=== PATIENT | female | born 2000 | race African-American/Black ===

== ENCOUNTER 2019-01-25 13:30 | Emergency (ER) | payer SELFPAY ==
[2019-01-25 13:36] VITALS: BP 136/96; PULSE 90; RESP 24; TEMP 36.4; O2SAT 100
--- NOTE | 2019-01-25 14:06 | DI.RAD.S_ITS ---
PROCEDURE: XR CHEST 1V INDICATIONS: chest pain and nausea TECHNIQUE: One view of the chest was acquired. COMPARISON: None. FINDINGS: Surgical changes and devices: None. Lungs and pleura: Lungs are clear. No pleural effusions or pneumothorax. Mediastinum: Mediastinal contours appear normal. Heart size is normal. Bones and chest wall: No suspicious bony lesions. Benign-appearing tubular region of increased density within the soft tissues of the left forearm adjacent to the humerus which could represent dystrophic calcification, heterotopic os patient, or reactive granulomatous formation in the setting of current or prior implanted device. IMPRESSION: No acute cardiopulmonary abnormality. Dictated by: Wily Jo M.D. on 01/25/2019 at 13:25 Approved by: Wily Jo M.D. on 01/25/2019 at 13:28
[2019-01-25 14:25] VITALS: BP 115/72; PULSE 71; RESP 13; O2SAT 100
[2019-01-25 14:43] LABS: Add Manual Diff / Slide Review NO; Basophils Absolute Auto 100 /uL (0-100); Basophils Percent Auto 0.8 % (0-2); Eosinophils Absolute Auto 0 /uL (0-450); Eosinophils Percent Auto 0.5 % (2-4); Hematocrit 38.1 % (36-46); Lymphocytes Absolute Auto 1800 /uL (1100-4500); Lymphocytes Percent Auto 23.2 % (25-40); Mean Corpuscular Hemoglobin 27.5 PG (26-34); Mean Corpuscular Volume 80.8 fL (80-100); Monocytes Absolute Auto 600 /uL (0-900); Monocytes Percent Auto 7.5 % (3-14); Neutrophils Absolute Auto 5300 /uL (1500-7000); Platelet Count 391 X10^3/uL (150-400); Red Blood Cell Count 4.71 X10^6/uL (4.0-5.2); Red Cell Distribution Width 14.5 % (11.6-14.8); White Blood Cell Count 7.8 X10^3/uL (4.5-11.0)
[2019-01-25 14:58] LABS: Alanine Aminotransferase 16 IU/L (9-52); Albumin 4.5 g/dL (3.5-5.0); Albumin Globulin Ratio 1.1 (1.0-2.8); Alkaline Phosphatase 86 U/L (38-126); Aspartate Aminotransferase 40 IU/L (14-36); BUN Creatinine Ratio 23.3 (6-22); Bilirubin Total 0.6 mg/dL (0.2-1.3); Blood Urea Nitrogen 14 mg/dL (7-17); Calcium 9.5 mg/dL (8.4-10.2); Carbon Dioxide 24 mmol/L (22-32); Chloride 104 mmol/L (98-107); Creatine Kinase 139 U/L (30-135); Estimated Glomerular Filt Rate > 60.0 mL/min (>60); Globulin 4.2 g/dL (1.7-4.1); Glucose 91 mg/dL (70-100); Lipase 92 U/L (23-300); Potassium 4.1 mmol/L (3.4-5.1); Sodium 140 mmol/L (137-145); Total Protein 8.7 g/dL (6.3-8.2)
[2019-01-25 15:04] LABS: D Dimer < 200 ng/mL (<230)
[2019-01-25] MEDS: IBUPROFEN 400 MG TABLET PO (15:08)
[2019-01-25 15:09] LABS: Troponin I < 0.012 ng/mL (0.01-0.034)
[2019-01-25 15:13] LABS: CKMB % Relative Index 0.5 % (1.5-5.0); Creatine Kinase MB 0.69 ng/mL (<2.37)
[2019-01-25 15:17] LABS: HEMOLYSIS 94 (0-50)
--- NOTE | 2019-01-25 15:31 | ED.CHESTPAIN ---
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 She denies work load is heavy or strenuous. She denies heavy lifting recently. Patient was diagnosed yesterday her symptoms probably due to anxiety attacks. Patient denies prior history of anxiety or anxiety attacks, or history of GERD. Patient reports she has mild cough and mild sore throat. Patient reports discomfort came on when she was working and got better with rest and when she returned back to work the pain recurred. Patient reports she has family history of heart attacks in her grandfather and father at later age and maternal aunt. She takes control pill and he is a nonsmoker. LMP yesterday. Related Data Previous Rx's Medication Instructions Recorded omeprazole 20 mg PO DAILY #30 cap 01/25/19 ondansetron 4 mg PO BID-TID PRN #7 tab 01/25/19 Review of Systems <Zafar PerdomoangJayeshaugustus [facility] - Last Filed: 01/26/19 00:12> Review of Systems Narrative: General: Denies fever, chills, fatigue, malaise, sweats. HEENT: Reports mild sore throat. Denies sinus pain, ear pain, difficulty swallowing, dizziness. Respiratory: Reports mild cough. Denies dyspnea, wheezing, hemoptysis, sputum. Cardiovascular: See HPI Gastrointestinal: Reports nausea. Denies vomiting, abdominal pain, diarrhea, constipation, melena. : Denies dysuria, frequency, incontinence, hematuria, urinary retention. Musculoskeletal: Denies weakness, joint pain or bony pain. Skin: Denies rash, skin lesions, or other. Neurologic: Denies weakness, headache, numbness, change in speech, confusion, seizures, incoordination. Psychiatric: No concerning psychosocial issues. 12-point review of systems is negative except for those stated above. Patient History <SKYLER Means - Last Filed: 01/26/19 00:12> Social History Smoking Status: Never smoker Social History Smoking Status: Never smoker Substance Use Type: does not use Exam <SKYLER Means - Last Filed: 01/26/19 00:12> Narrative Exam Narrative: GEN: Alert, oriented x 3, well appearing and nourished, and in no acute distress. Head: Normal cephalic, atraumatic. No scalp or temporal tenderness, palpable mass or rash. EYES: Pupils are equal, round, and reactive to light and accommodation. Extraocular muscles are intact bilaterally. There is no subconjunctival hemorrhage, exudate and sclera non-icteric. ENT: Bilateral auditory canals and tympanic membranes clear. Hearing grossly intact. Nose without bleeding, purulent discharge or deviation. Facial sinuses nontender to palpate. Mucous membrane moist, no mucosal lesion. Throat without erythema, tonsillar hypertrophy or exudate. Uvula in midline, airway patent. Neck: Trachea in midline. No JVD, non-tender without lymphadenopathy. No masses or thyroid megaly. Supple, non-tender and no meningeal signs. CARDIAC: Normal regular rate and rhythm without murmurs, gallops, or rubs. No chest wall tenderness. No peripheral edema, cyanosis or pallor. Capillary refill is less than 2 seconds. RESPIRATORY: Lungs are cleat to auscultate bilaterally. No cough, wheezes, rales, or rhonchi. No stridor, respiratory distress, increase work of breathing, or accessary muscle used. ABD: Abdomen soft, nontender and non-distended. No guarding or rebound tenderness to palpate. Bowel sounds are normal in all 4 quadrants. There is no palpable masses or organomegaly. EXT: Full painless ROM of all extremities with no loss of sensation, strength, effusion or edema. SKIN: Warm, dry, normal color for patient. No erythema, lesions or rash over visible areas. BACK: Nontender without deformity or crepitance. No flank tenderness. NEUROLOGICAL: Alert and oriented to place, time and person. Sensation and motor function intact bilaterally. No facial droops, dysphasia. PSYCHIATRIC: Good judgement and reason, without hallucinations, abnormal affect or abnormal behaviors during the examination. Initial Vital Signs Initial Vital Signs: Vital Signs Temperature 97.6 F 01/25/19 13:36 Pulse Rate 90 01/25/19 13:36 Respiratory Rate 24 01/25/19 13:36 Blood Pressure 136/96 H 01/25/19 13:36 Pulse Oximetry 100 01/25/19 13:36 <Nancy Trinidad DO - Last Filed: 01/29/19 18:19> Initial Vital Signs Initial Vital Signs: Vital Signs Temperature 97.6 F 01/25/19 13:36 Pulse Rate 90 01/25/19 13:36 Respiratory Rate 24 01/25/19 13:36 Blood Pressure 136/96 H 01/25/19 13:36 Pulse Oximetry 100 01/25/19 13:36 Scores <SKYLER Means - Last Filed: 01/26/19 00:12> GCS Lobo coma scale eye opening: Spontaneous [place] coma scale verbal response: Orientated Lobo coma scale motor response: Obey commands Lobo coma scale total score: 15 Course <SKYLER Means - Last Filed: 01/26/19 00:12> Orders Ordered: Discontinued Medications Al Hydrox/Mg Hydrox/Simethicone 20 ml/ Lidocaine HCl 15 ml 0 ml PO NOW ONE Stop: 01/25/19 15:28 Last Admin: 01/25/19 16:06 Dose: 35 ml Documented by: LUCIUS Ibuprofen (Advil) 400 mg PO NOW ONE Stop: 01/25/19 15:04 Last Admin: 01/25/19 15:08 Dose: 400 mg Documented by: YAYO Ketorolac Tromethamine (Toradol) 30 mg IV NOW ONE Stop: 01/25/19 14:06 Last Admin: 01/25/19 15:09 Dose: Not Given Documented by: YAYO Ondansetron HCl (Zofran) 4 mg IV NOW ONE Stop: 01/25/19 14:06 Last Admin: 01/25/19 15:09 Dose: Not Given Documented by: YAYO Vital Signs Vital signs: Vital Signs - 8 hr 01/25/19 16:46 Pulse Rate 68 Respiratory Rate 13 Blood Pressure 118/74 Pulse Oximetry 100 <Nancy Trinidad DO - Last Filed: 01/29/19 18:19> Orders Ordered: Discontinued Medications Al Hydrox/Mg Hydrox/Simethicone 20 ml/ Lidocaine HCl 15 ml 0 ml PO NOW ONE Stop: 01/25/19 15:28 Last Admin: 01/25/19 16:06 Dose: 35 ml Documented by: LUCIUS Ibuprofen (Advil) 400 mg PO NOW ONE Stop: 01/25/19 15:04 Last Admin: 01/25/19 15:08 Dose: 400 mg Documented by: YAYO Ketorolac Tromethamine (Toradol) 30 mg IV NOW ONE Stop: 01/25/19 14:06 Last Admin: 01/25/19 15:09 Dose: Not Given Documented by: YAYO Ondansetron HCl (Zofran) 4 mg IV NOW ONE Stop: 01/25/19 14:06 Last Admin: 01/25/19 15:09 Dose: Not Given Documented by: YAYO Vital Signs Vital signs: Vital Signs - 8 hr 01/25/19 16:46 Pulse Rate 68 Respiratory Rate 13 Blood Pressure 118/74 Pulse Oximetry 100 MDM - Chest Pain <Zafar SKYLER Bright - Last Filed: 01/26/19 00:12> Differential Diagnosis Differential diagnosis: Likely atypical chest pain, costochondritis and other (GERD) Medical Records Data Attestation: I reviewed the patient's medical records. Lab Data Attestation: I reviewed the patient's lab results. Result diagrams: 01/25/19 14:35 01/25/19 14:35 Labs: Lab Results 01/25/19 01/25/19 01/25/19 Range/Units 14:35 14:35 14:35 WBC 7.8 (4.5-11.0) X10^3/uL RBC 4.71 (4.0-5.2) X10^6/uL Hgb 13.0 (12.0-16.0) g/dL Hct 38.1 (36-46) % MCV 80.8 (80-100) fL MCH 27.5 (26-34) PG MCHC 34.0 (30-36) % RDW 14.5 (11.6-14.8) % Plt Count 391 (150-400) X10^3/uL Neut % (Auto) 68.0 (50-75) % Lymph % (Auto) 23.2 L (25-40) % Clinch % (Auto) 7.5 (3-14) % Eos % (Auto) 0.5 L (2-4) % Baso % (Auto) 0.8 (0-2) % Neut # (Auto) 5300 (0296-8199) /uL Lymph # (Auto) 1800 (5861-9766) /uL Clinch # (Auto) 600 (0-900) /uL Eos # (Auto) 0 (0-450) /uL Baso # (Auto) 100 (0-100) /uL D-Dimer < 200 (<230) ng/mL Sodium 140 (137-145) mmol/L Potassium 4.1 (3.4-5.1) mmol/L Chloride 104 (98-107) mmol/L Carbon Dioxide 24 (22-32) mmol/L BUN 14 (7-17) mg/dL Creatinine 0.60 (0.52-1.04) mg/dL Estimated GFR > 60.0 (>60) mL/min BUN/Creatinine Ratio 23.3 H (6-22) Glucose 91 (70-100) mg/dL Calcium 9.5 (8.4-10.2) mg/dL Total Bilirubin 0.6 (0.2-1.3) mg/dL AST 40 H (14-36) IU/L ALT 16 (9-52) IU/L Alkaline Phosphatase 86 (38-126) U/L Total Creatine Kinase 139 H (30-135) U/L CK-MB (CK-2) 0.69 (<2.37) ng/mL CK-MB (CK-2) Rel Index 0.5 L (1.5-5.0) % Troponin I < 0.012 (0.01-0.034) ng/mL Total Protein 8.7 H (6.3-8.2) g/dL Albumin 4.5 (3.5-5.0) g/dL Globulin 4.2 H (1.7-4.1) g/dL Albumin/Globulin Ratio 1.1 (1.0-2.8) Lipase 92 (23-300) U/L Point of Care Testing Test Results Negative Urine Dip Bedside Urine Glucose Negative Bedside Urine Bilirubin - Negative Bedside Urine Ketone - Negative Urine Specific [place] 1.005 Bedside Urine Occult Blood +++ Bedside Urine pH 7.0 Bedside Urine Protein +/- 15 Bedside Urine Urobilinogen - Negative Bedside Urine Nitrite - Negative Bedside Urine Leukocytes - Negative Esterase Imaging Data Chest x-ray: Radiologist's impression: [address] [address] XRay Report Signed Patient: Shelia Tran#: [id number] : 2000Acct:[id number] Age/Sex: 18 / FDate of Service: 01/25/19 Loc: ED Accession Number: [id number] Procedure: XR chest 1V Ordering Provider: Zafar Bright PROCEDURE: XR CHEST 1V INDICATIONS: chest pain and nausea TECHNIQUE: One view of the chest was acquired. COMPARISON: None. FINDINGS: Surgical changes and devices: None. Lungs and pleura: Lungs are clear. No pleural effusions or pneumothorax. Mediastinum: Mediastinal contours appear normal. Heart size is normal. Bones and chest wall: No suspicious bony lesions. Benign-appearing tubular region of increased density within the soft tissues of the left forearm adjacent to the humerus which could represent dystrophic calcification, heterotopic os patient, or reactive granulomatous formation in the setting of current or prior implanted device. IMPRESSION: No acute cardiopulmonary abnormality. Dictated by: Wily Jo M.D. on 01/25/2019 at 13:25 Approved by: Wily Jo M.D. on 01/25/2019 at 13:28 ECG Data Attestation: I personally reviewed and interpreted this ECG as follows: Prior ECG tracings: not available for review Interpretation: SR rate at No ST elevation or depression QT/QTc 403/416 MDM Narrative Medical decision making narrative: This is a 18-year-old female who was brought in to ED via EMS with chief complain of mid chest burning discomfort and short of breath. 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 Patient reports had difficulty breathing, felt panicky and hyperventilation due to chest discomfort. Patient denies history of anxiety, GERD, cardiac history, or heavy lifting. Patient denies constitutional symptoms. Her chest pain was reproducible. Lab tests showed unremarkable CBC, chemistry, lipase along cardiac enzymes and D-dimer. Chest x-ray showed no acute findings. Patient was medicated with p.o. Motrin as patient elected over IV Toradol. Patient declined Zofran due to resolved nausea. Patient states her symptoms were markedly improved but not resolved. Patient was medicated with GI cocktail and reports much improved symptoms. Patient was discharged to home with atypical chest pain likely due to costal chondritis versus GERD symptoms. Patient advised to avoid trigger foods for discomfort and to stay of after eating released couple of hours. Discharged to home with omeprazole and Zofran, and continue to take Aleve with food for discomfort. Return precautions were discussed with the patient and work note has been provided for light duty for next a day or so. Patient verbalized understanding and agrees with treatment plan. <Nancy Trinidad, DO - Last Filed: 01/29/19 18:19> Lab Data Labs: Lab Results 01/25/19 01/25/19 01/25/19 Range/Units 14:35 14:35 14:35 WBC 7.8 (4.5-11.0) X10^3/uL RBC 4.71 (4.0-5.2) X10^6/uL Hgb 13.0 (12.0-16.0) g/dL Hct 38.1 (36-46) % MCV 80.8 (80-100) fL MCH 27.5 (26-34) PG MCHC 34.0 (30-36) % RDW 14.5 (11.6-14.8) % Plt Count 391 (150-400) X10^3/uL Neut % (Auto) 68.0 (50-75) % Lymph % (Auto) 23.2 L (25-40) % Clinch % (Auto) 7.5 (3-14) % Eos % (Auto) 0.5 L (2-4) % Baso % (Auto) 0.8 (0-2) % Neut # (Auto) 5300 (5739-1027) /uL Lymph # (Auto) 1800 (4256-3043) /uL Clinch # (Auto) 600 (0-900) /uL Eos # (Auto) 0 (0-450) /uL Baso # (Auto) 100 (0-100) /uL D-Dimer < 200 (<230) ng/mL Sodium 140 (137-145) mmol/L Potassium 4.1 (3.4-5.1) mmol/L Chloride 104 (98-107) mmol/L Carbon Dioxide 24 (22-32) mmol/L BUN 14 (7-17) mg/dL Creatinine 0.60 (0.52-1.04) mg/dL Estimated GFR > 60.0 (>60) mL/min BUN/Creatinine Ratio 23.3 H (6-22) Glucose 91 (70-100) mg/dL Calcium 9.5 (8.4-10.2) mg/dL Total Bilirubin 0.6 (0.2-1.3) mg/dL AST 40 H (14-36) IU/L ALT 16 (9-52) IU/L Alkaline Phosphatase 86 (38-126) U/L Total Creatine Kinase 139 H (30-135) U/L CK-MB (CK-2) 0.69 (<2.37) ng/mL CK-MB (CK-2) Rel Index 0.5 L (1.5-5.0) % Troponin I < 0.012 (0.01-0.034) ng/mL Total Protein 8.7 H (6.3-8.2) g/dL Albumin 4.5 (3.5-5.0) g/dL Globulin 4.2 H (1.7-4.1) g/dL Albumin/Globulin Ratio 1.1 (1.0-2.8) Lipase 92 (23-300) U/L Point of Care Testing Test Results Negative Urine Dip Bedside Urine Glucose Negative Bedside Urine Bilirubin - Negative Bedside Urine Ketone - Negative Urine Specific [place] 1.005 Bedside Urine Occult Blood +++ Bedside Urine pH 7.0 Bedside Urine Protein +/- 15 Bedside Urine Urobilinogen - Negative Bedside Urine Nitrite - Negative Bedside Urine Leukocytes - Negative Esterase Discharge Plan Departure Patient Disposition: Home Clinical Impression: Atypical chest pain Discharge Date/Time: 01/25/19 16:47 Instructions: DI for Gastroesophageal Reflux Disease (GERD), DI for Atypical Chest Pain, DI for Costochondritis Activity Restrictions/Additional Instructions: You have been diagnosed with [atypical chest pain. This may due to costochondritis or GERD symptoms. Your symptoms improved after the medication GI cocktail and Motrin. EKG and lab tests including cardiac enzymes were unremarkable. X-ray test did not show acute findings such as pneumonia.]. What to do: *Take your medications as directed. Take omeprazole for stomach acid daily. Avoid trigger foods and stay up for couple of hours after eating. Take Aleve or NSAIDS with food to avoid GI irritation sign. You can take on dense turns/Zofran for nausea as needed. *Follow up with your primary care provider in 2-3 days, call for an appointment. Let them know you were seen in the ED and that we asked you to be seen in follow up. *Return to ED if you have any new, worsening, or concerning symptoms, such as [worsening pain, unable to tolerate fluids, breathing difficulty, feeling dizzy, or any acute concerns]. Prescriptions: New ondansetron 4 mg tablet,disintegrating 4 mg PO BID-TID PRN (Reason: nausea and vomiting) Qty: 7 RF: 0 omeprazole 20 mg capsule,delayed release(DR/EC) 20 mg PO DAILY Qty: 30 RF: 0 Stand Alone Forms: Work Release Note
[2019-01-25 15:39] VITALS: BP 121/85; PULSE 69; RESP 19; O2SAT 100
[2019-01-25] MEDS: MAG HYDROX/ALUMINUM/SIMETH SUS 20 ML, LIDOCAINE VISCOUS 2% 15 ML PO (16:06)
[2019-01-25 16:46] VITALS: BP 118/74; PULSE 68; RESP 13; O2SAT 100
== END 2019-01-25 16:47 | disposition home or self-care (01) ==
PROVIDERS: Emergency Provider Nurse Practitioner Family
DX: R07.89 Other chest pain (principal); R06.02 Shortness of breath; R11.0 Nausea
CPT/HCPCS: 71045; 80053; 81003; 81025; 82550; 82553; 83690; 84484; 85025; 85379; 93005; 93041; 99283; 99285